=== PATIENT | female | born 1975 | race African-American/Black ===

== ENCOUNTER 2024-12-28 10:51 | Emergency (ER) | payer SELFPAY ==
[~2024-12-28] VITALS: Ht 167.6 cm; Wt 110.0 kg
[~2024-12-28 10:51] MED LIST: ALPR1TAB2
[2024-12-28 10:54] VITALS: BP 132/91; PULSE 107; RESP 16; O2SAT 99
== END 2024-12-28 11:12 | disposition left against medical advice (07) ==
LOC: ER 10:51
DX: R00.0 Tachycardia, unspecified (principal); Z53.21 Procedure and treatment not carried out due to patient leaving prior to being seen by health care provider